=== PATIENT | male | born 1975 | race American Indian/Alaskan Native ===

== ENCOUNTER 2018-10-07 10:25 | Emergency (ER) | payer SELFPAY ==
[2018-10-07 11:25] VITALS: BP 102/64
--- NOTE | 2018-10-07 11:25 | Emergency Department Report ---
Blank Doc - Documentation Documentation: This is a 43-year-old male that presents with right sided rib pain status post fall 2 weeks ago. Stated has some SOB. Denies any head trauma or back pain. Denies any other complaints. This initial assessment diagnostic orders/clinical plan/treatment(s) is/are subject to change based on patient's health status, clinical progression and re- assessment by fellow clinical providers in the ED. Further treatment and workup at subsequent clinical providers discretion. Patient/guardians urged not to elope from ED s their condition may be serious if not clinically assessed and managed. Initial orders include: 1-Patient sent to [facility] for further evaluation and treatment 2- CT rib
--- NOTE | 2018-10-07 11:39 | Emergency Department Report ---
HPI - General Chief Complaint: Fall Time Seen by Provider: 10/07/18 11:23 - HPI HPI: 43-year-old male presents to the emergency department with complaint of right-sided rib pain, right-sided flank pain and pain down to the right hip is been going on for the past 2 weeks since the patient had a fall while riding his son's report. He fell directly onto the right side on concrete. Since that time he has been having some discomfort and difficulty with certain movements. He has not taken anything for her symptoms prior to presentation. No past medical history. He does not have a primary care physician. He denies hitting his head or any LOC. No numbness or paresthesias or any neurological deficits. ED Past Medical Hx - Past Medical History Previous Medical History?: No - Surgical History Past Surgical History?: No - Social History Smoking Status: Never Smoker Substance Use Type: None - Medications Home Medications: Home Medications Medication Instructions Recorded Confirmed Last Taken Type HYDROcodone/APAP 5-325 [[place] 1 each PO Q6HR PRN #12 tablet 10/07/18 Unknown Rx 5/325] ED Review of Systems ROS: Stated complaint: RT RIB PAIN/FALLEN Other details as noted in HPI Comment: Unobtainable due to pts medical conditions Constitutional: denies: chills, fever Eyes: denies: eye pain, vision change ENT: denies: ear pain, throat pain Respiratory: denies: cough, shortness of breath Cardiovascular: denies: edema, syncope Gastrointestinal: denies: vomiting, diarrhea Genitourinary: denies: dysuria, discharge Musculoskeletal: other (right sided rib pain). denies: back pain Skin: denies: rash, lesions Neurological: denies: headache, weakness, numbness Physical Exam - Physical Exam Vital Signs: Vital Signs 10/07/18 11:23 Temperature 98.0 F Pulse Rate 59 L Respiratory 16 Rate Blood Pressure 102/64 O2 Sat by Pulse 97 Oximetry Physical Exam: GENERAL: The patient is well-developed well-nourished. HEENT: Normocephalic. Atraumatic. Patient has moist mucous membranes. EYES: Extraocular motions are intact. NECK: Supple. Trachea is midline. CHEST/LUNGS: Clear to auscultation. There is no respiratory distress noted. There is some tenderness to palpation to the right lateral lower rib cage. No crepitus or deformity. HEART/CARDIOVASCULAR: Regular. There is no tachycardia. There is no obvious murmur. ABDOMEN: Abdomen is soft, nontender. Patient has normal bowel sounds. There is no abdominal distention. SKIN: Skin is warm and dry. NEURO: The patient is awake, alert, and oriented. The patient is cooperative. The patient has no focal neurologic deficits. The patient has normal speech. MUSCULOSKELETAL: There is no tenderness or deformity. There is no limitation range of motion. There is no evidence of acute injury. BACK: No midline thoracic or lumbar tenderness to palpation, step-off or deformity. ED Course Vital Signs 10/07/18 11:23 Temperature 98.0 F Pulse Rate 59 L Respiratory 16 Rate Blood Pressure 102/64 O2 Sat by Pulse 97 Oximetry ED Medical Decision Making - Radiology Data Radiology results: image reviewed interpreted by me: Chest x-ray with right sided rib series shows a fracture of rib number 8. No pneumothorax. - Medical Decision Making Patient presents to the emergency department with a 2 week history of right- sided lateral rib pain and some flank pain after falling onto the concrete while trying to ride a hover board. X-ray shows a isolated right-sided eighth rib fracture without any pneumothorax. Patient was given a prescription for some pain medication and referrals for orthopedists. We discussed making sure that he takes at least 10 deep breaths per hour while awake to avoid any atelectasis and pneumonia. He will return to the ER with any worsening of symptoms or any acute distress. - Differential Diagnosis fracture, contusion, oblique strain Critical Care Time: No Critical care attestation.: If time is entered above; I have spent that time in minutes in the direct care of this critically ill patient, excluding procedure time. ED Disposition Clinical Impression: Right rib fracture Qualifiers: Encounter type: initial encounter Rib fracture type: single rib Fracture type: closed Qualified Code(s): S22.31XA - Fracture of one rib, right side, initial encounter for closed fracture Disposition: -01 TO HOME OR SELFCARE Is pt being admited?: No Condition: Stable Instructions: Rib Fracture (ED) Additional Instructions: Please follow-up with your primary care physician and an orthopedist regarding the fracture. You fractured the right eighth rib. Make sure that you take at least 10 deep breaths every hour while you are awake to make sure that you do not develop any pneumonia. Return to the emergency Department with any worsening of your symptoms or any acute distress. You have been prescribed a medication that can be sedating. Therefore, this medication cannot be taken prior to driving, working, being responsible for children, and cannot be mixed with alcohol of any quantity. Prescriptions: HYDROcodone/APAP 5-325 [[place] 5/325] 1 each PO Q6HR PRN #12 tablet PRN Reason: Pain Referrals: [facility] [Provider Group] - 2-3 Days [facility] [Outside] - 2-3 Days ANTHONY NOVA MD [Staff Physician] - 2-3 Days
--- NOTE | 2018-10-07 12:20 | XRay Report ---
RIGHT HIP, 2 views: History: Right hip pain. The bony architecture is intact without evidence of fracture or dislocation. No significant soft tissue abnormality is seen. IMPRESSION: Normal right hip.
--- NOTE | 2018-10-07 12:21 | XRay Report ---
RIGHT RIBS, 3 VIEWS: History: pain. A right eighth posterolateral rib fracture is identified. The remaining right ribs are grossly intact. No evidence for pneumothorax or pleural fluid collection. IMPRESSION: Right eighth rib fracture.
== END 2018-10-07 12:56 | disposition home or self-care (01) ==
LOC: ED 10:25
DX: S22.31XA Fracture of one rib, right side, initial encounter for closed fracture (principal); W19.XXXA Unspecified fall, initial encounter; Y93.89 Activity, other specified; Y92.89 Other specified places as the place of occurrence of the external cause; Y99.8 Other external cause status

== ENCOUNTER 2019-10-27 23:59 | Emergency (ER) | payer SELFPAY ==
--- NOTE | 2019-10-28 03:50 | XRay Report ---
RIGHT ELBOW, 3 VIEWS INDICATION / CLINICAL INFORMATION: GOLF BALL SIZE LUMP RIGHT ELBOW. DENIES INJURY.. COMPARISON: None available. FINDINGS: The olecranon bursa is prominently distended. This is most consistent with the presence of olecranon bursitis. The bones of the elbow are unremarkable. No fracture, dislocation, or joint distention. No significant degenerative change. IMPRESSION: Prominent fullness in the region of the olecranon bursa, most consistent with olecranon b ursitis. Signer Name: Keke Panchal MD Signed: 10/28/2019 3:45 AM Workstation Name: [id number]
--- NOTE | 2019-10-28 07:58 | Emergency Department Report ---
Upper Extremity - HPI Chief Complaint: Neuro Symptoms/Deficit Stated Complaint: R SHOULDER TO FINGERS NUMBNESS/EDEMA Time Seen by Provider: 10/28/19 06:28 Upper Extremity: Right Arm, Right Elbow, Right Forearm Occurred When: >5 Days (Right upper extremity dysesthesia present for 6 months. Right elbow olecranon swelling present for 24 hours) Mechanism: Other (See history of present illness) Symptoms: Yes Numbness, Yes Swelling, No Pain with Movement, No Deformity, No Limited Range of Movement, No Weakness, No Bruising/Ecchymosis, No Laceration or Abrasion Other History: The patient is a 44-year-old gentleman. He is right-hand dominant. He is not known to myself previously. He presents to the emergency room with 2 complaints. His first complaint is right upper extremity dysesthesia/numbness/change in sensation, present for 6 months. He reports that he was jumping up 6 months ago, and felt a twist or pop in his proximal shoulder, or lateral pectoral region. Since then, he has been having sensory changes in the right upper extremity. These changes are not new, worsened or different today. He has not sought medical attention. There is no complaint of weakness. There is no bladder or bowel retention or incontinence, and there is no saddle anesthesia. It does not have exacerbating or relieving factors. He endorses a secondary complaint of nontraumatic right posterior olecranon swelling, painless, present for the past 24 hours. No fever, no nausea, vomiting, diarrhea, no GI, no symptoms. ED Review of Systems ROS: Stated complaint: R SHOULDER TO FINGERS NUMBNESS/EDEMA Other details as noted in HPI Constitutional: denies: fever Eyes: as per HPI ENT: as per HPI Respiratory: see HPI Cardiovascular: as per HPI Gastrointestinal: as per HPI Genitourinary: as per HPI Musculoskeletal: as per HPI, other (Right posterior olecranon swelling) Neurological: paresthesias. denies: headache, weakness ED Past Medical Hx - Past Medical History Previous Medical History?: No - Surgical History Past Surgical History?: No - Social History Smoking Status: Never Smoker Substance Use Type: None - Medications Home Medications: Home Medications Medication Instructions Recorded Confirmed Last Taken Type HYDROcodone/APAP 5-325 [[place] 1 each PO Q6HR PRN #12 tablet 10/07/18 Unknown Rx 5/325] Upper Extremity Exam - Exam General: Vital signs noted. No distress. Alert and acting appropriately. There is no facial droop. The tongue is midline. Extraocular movements are intact bilaterally. There is 5 out of 5 strength in bilateral upper and lower extremities. Sensation is intact to light touch bilateral upper and lower extremities. There is a normal gait. 5 out of 5 strength bilateral upper extremities, there is no hyperreflexia, there is no clonus in the upper extremities, sensation is intact to light touch in the bilateral upper extremities, although patient subjectively endorses decreased sensation in the right upper extremity. 2+ biceps reflex is noted in the right upper extremity. Head and Torso: No HEENT Abnormality, No Neck Tenderness, No Chest/Lungs Abnormality, No Abdominal Tenderness, No Back Tenderness Shoulder Exam: Yes Normal Range of Motion in Shoulder, No Shoulder Tenderness, No Clavicle Tenderness, No Shoulder Deformity, No AC Joint Tenderness Arm Exam: No Arm/Humerus Tenderness, No Arm Deformity Elbow: Yes Normal Range of Motion in Elbow (There is a nontender olecranon swelling noted in the right elbow, without redness, pus or streaking.), No Elbow Tenderness, No Elbow Deformity Forearm: No Forearm Tenderness, No Forearm Deformity, No Pain with Pronation, No Pain with Supination Wrist: Yes Normal ROM in Wrist, No Wrist Tenderness, No Wrist Deformity, No Snuffbox Tenderness, No Pain with Axial Thumb Compression Hand: Yes Normal ROM in Digit(s), No Hand Tenderness, No Hand Deformity, No Digit Tenderness, No Digit(s) Deformity, No Tendon Dysfunction CMS Exam: Yes Normal Distal Pulses, Yes Normal Capillary Refill, Yes Normal Distal Sensation, No Broken Skin ED Course Vital Signs 10/28/19 10/28/19 00:35 06:55 Temperature 98.0 F 97.8 F Pulse Rate 71 56 L Respiratory 18 18 Rate Blood Pressure 98/62 Blood Pressure 120/75 [Left] O2 Sat by Pulse 98 98 Oximetry ED Medical Decision Making - Lab Data Vital Signs 10/28/19 10/28/19 00:35 06:55 Temperature 98.0 F 97.8 F Pulse Rate 71 56 L Respiratory 18 18 Rate Blood Pressure 98/62 Blood Pressure 120/75 [Left] O2 Sat by Pulse 98 98 Oximetry - Radiology Data Radiology results: report reviewed, image reviewed Print Report Referring Physician: ED DOC Patient Name: LG LEVY Date of : 1975 Sex: Male Report Date: 2019-10-28 Report Status: Finalized Findings [facility] [address] [place] [address] XRay Report Signed Patient: LG LEVY MR#: [id number] : 1975 Acct:[id number] Age/Sex: 44 / M ADM Date: 10/27/19 Loc: ED Attending Dr: Ordering Physician: BAO NEVES MD Date of Service: 10/28/19 Procedure(s): XR elbow 3+V RT Accession Number(s): [id number] cc: ED MD PURA Fluoro Time In Minutes: RIGHT ELBOW, 3 VIEWS INDICATION / CLINICAL INFORMATION: GOLF BALL SIZE LUMP RIGHT ELBOW. DENIES INJURY.. COMPARISON: None available. FINDINGS: The olecranon bursa is prominently distended. This is most consistent with the presence of olecranon bursitis. The bones of the elbow are unremarkable. No fracture, dislocation, or joint distention. No significant degenerative change. IMPRESSION: Prominent fullness in the region of the olecranon bursa, most consistent with olecranon bursitis. Signer Name: Keke Panchal MD Signed: 10/28/2019 3:45 AM Workstation Name: [id number] Transcribed By: Dictated By: Keke Panchal MD Electronically Authenticated By: Keke Panchal MD Signed Date/Time: 10/28/19 0345 DD/ 0 TD/TT: - Medical Decision Making Differential diagnosis, including but not limited to: Olecranon bursitis, right upper extremity peripheral neuropathy, brachial plexopathy Assessment and plan: 44-year-old gentleman with 2 complaints Complaints #1, right upper extremity dysesthesia, present for 6 months, after jumping up to 6 months ago and no sports related event. He has full range of motion in the right upper extremity, and has no obvious weakness. He has appropriate pulses and capillary refill, and is ranging the right upper ex tremity without difficulty. Rest ice compression elevation therapy, outpatient management/follow-up with neurology, primary care, or physical therapy. Complaints #2, nontraumatic painless right posterior olecranon bursa swelling He denies additional arthralgias, arthritis, joint swelling. His upper extremity exam and lower extremity exam are unremarkable. The bursa itself is distinctly nontender, and he has intact range of motion. Rest ice compression elevation, he can follow-up with an outpatient primary care doctor or orthopedist for this. The patient does not appear to have an emergency medical condition at this time, and he can follow-up as an outpatient. Upon my initial evaluation, he is sleeping comfortably in his stretcher, and in no acute distress. Critical care attestation.: If time is entered above; I have spent that time in minutes in the direct care of this critically ill patient, excluding procedure time. ED Disposition Clinical Impression: Paresthesia of right upper extremity Effusion of olecranon bursa Qualifiers: Laterality: right Qualified Code(s): M25.421 - Effusion, right elbow Disposition: - TO HOME OR SELFCARE Is pt being admited?: No Does the pt Need Aspirin: No Condition: Stable Additional Instructions: Rest, avoid heavy lifting, and avoid strenuous physical activities. Participate in daily activities as tolerated. Avoid sports, and heavy strenuous physical activity until cleared to do so by either your primary care doctor or orthopedist. For sensation of numbness in the right upper extremity, the patient should follow-up with a neurologist or primary care doctor within the next 7 to 10 days. For nontraumatic swelling on the right posterior elbow, the patient should follow-up with an orthopedist, licensed physical therapist assistant, or primary care doctor within the next 2 weeks. The patient may use rest, ice, compression, elevation, Alternate heat packs, ice packs, and take Tylenol and Motrin [id number] as needed for pain, if pain develops. Please return to the emergency room right away with new, worsened or different symptoms, or symptoms not present on the initial emergency room evaluation. Referrals: VIDYA BONILLA MD [Staff Physician] - as needed ANTHONY NOVA MD [Staff Physician] - as needed RYAN JIMENEZ MD [Referring] - as needed
[2019-10-28 08:32] VITALS: BP 121/71
== END 2019-10-28 08:31 | disposition home or self-care (01) ==
LOC: ED 23:59
DX: M25.421 Effusion, right elbow (principal); R20.0 Anesthesia of skin
CPT/HCPCS: 99283

== ENCOUNTER 2022-05-12 12:11 | Emergency (ER) | payer OTHER ==
--- NOTE | 2022-05-12 13:24 | Emergency Department Report ---
ED Lower Extremity HPI - General Stated Complaint: LT KNEE PAIN/SWELLING Time Seen by Provider: 05/12/22 13:23 Source: patient Mode of arrival: Ambulatory Limitations: No Limitations - History of Present Illness Initial Comments: 47 YO COMES TO ER WITH LEFT KNEE PAIN NO FALL OR TRAUMA 3 W HX AMBULATORY TO ER MD Complaint: knee injury Place: home Worsens With: nothing - Related Data Previous Rx's Medication Instructions Recorded Last Taken Type HYDROcodone/APAP 5-325 [[place] 1 each PO Q6HR PRN #12 tablet 10/07/18 Unknown Rx 5/325] Allergies Allergy/AdvReac Type Severity Reaction Status Date / Time No Known Allergies Allergy Verified 05/12/22 13:25 ED Review of Systems ROS: Stated complaint: LT KNEE PAIN/SWELLING Other details as noted in HPI Comment: All other systems reviewed and negative ED Past Medical Hx - Past Medical History Previous Medical History?: No - Surgical History Past Surgical History?: No - Family History Family history: no significant - Social History Smoking Status: Never Smoker Substance Use Type: None - Medications Home Medications: Home Medications Medication Instructions Recorded Confirmed Last Taken Type HYDROcodone/APAP 5-325 [[place] 1 each PO Q6HR PRN #12 tablet 10/07/18 Unknown Rx 5/325] ED Physical Exam - General Limitations: No Limitations General appearance: alert, in no apparent distress - Head Head exam: Present: atraumatic, normocephalic - Eye Eye exam: Present: normal appearance - ENT ENT exam: Present: mucous membranes moist - Neck Neck exam: Present: normal inspection - Respiratory Respiratory exam: Present: normal lung sounds bilaterally. Absent: respiratory distress - Cardiovascular Cardiovascular Exam: Present: regular rate, normal rhythm. Absent: systolic murmur, diastolic murmur, rubs, gallop - GI/Abdominal GI/Abdominal exam: Present: soft, normal bowel sounds - Rectal Rectal exam: Present: deferred - Extremities Exam Extremities exam: Present: normal inspection - Back Exam Back exam: Present: normal inspection - Neurological Exam Neurological exam: Present: alert, oriented X3 - Psychiatric Psychiatric exam: Present: normal affect, normal mood - Skin Skin exam: Present: warm, dry, intact, normal color. Absent: rash ED Course Vital Signs 05/12/22 13:22 Temperature 98.3 F Pulse Rate 55 L Respiratory 16 Rate Blood Pressure 101/58 O2 Sat by Pulse 99 Oximetry ED Lower Extremity MDM - Radiology Data Radiology results: report reviewed, image reviewed RO FX - Medical Decision Making Vital Signs 05/12/22 13:22 Temperature 98.3 F Pulse Rate 55 L Respiratory 16 Rate Blood Pressure 101/58 O2 Sat by Pulse 99 Oximetry XRAY NOTED FULL ROM NEURO VASC INTACT DC HOME WITH DC PLAN OF CARE INCLUDING DIET, MEDS, ACTIVITY AND FOLLOW UP HE VERBALIZES UNDERSTANDING OF PLAN OF CARE - Differential Diagnosis RO FX Critical care attestation.: If time is entered above; I have spent that time in minutes in the direct care of this critically ill patient, excluding procedure time. ED Disposition Clinical Impression: Knee pain Disposition: HOME / SELF CARE / HOMELESS Is pt being admited?: No Does the pt Need Aspirin: No Condition: Stable Instructions: Joint Pain, [id number] Additional Instructions: ALTERNATE WARM AND COLD COMPRESSES TO KNEE MOTRIN OR TYLENOL FOR PAIN; OVER THE COUNTER FOLLOW UP WITH ORTHO REFERRAL BELOW XRAY NORMAL Referrals: ANTHONY NOVA MD [Staff Physician] - 3-5 Days Forms: Work/School Release Form(ED) Time of Disposition: 14:18
[2022-05-12 13:25] VITALS: BP 101/58
--- NOTE | 2022-05-12 13:52 | XRay Report ---
Left knee 3 views INDICATION: Pain FINDINGS: Alignment appears normal. Mild soft tissue swelling in the anterior knee. No acute fracture or dislocation. Signer Name: Nico Hernandez MD Signed: 05/12/2022 1:48 PM Workstation Name: [id number]
== END 2022-05-12 14:20 | disposition home or self-care (01) ==
LOC: ED 12:11
DX: M25.562 Pain in left knee (principal); Z79.899 Other long term (current) drug therapy
CPT/HCPCS: 99283